=== PATIENT | male | born 1945 | race Two or more races ===

== ENCOUNTER 2017-07-07 13:32 | Emergency (ER) | payer OTHER ==
[~2017-07-07] VITALS: Ht 198.1 cm; Wt 90.7 kg
[~2017-07-07 13:32] MED LIST: ALPHAGAN P5 M1; AZOPT5 ML; BETAXOLOL HCL5 ML; CLEOCIN HCL300 MG PO; COUMADIN5 MG; COUMADIN6 MG; COZAAR50 MG; INTESTINEX1 CA1 PO; NORVASC5 MG; PROZAC10 M1; PROZAC40 MG
== END 2017-07-07 17:01 | disposition home or self-care (01) ==
LOC: ER 13:32
DX: J18.9 Pneumonia, unspecified organism (principal); J45.909 Unspecified asthma, uncomplicated; J11.1 Influenza due to unidentified influenza virus with other respiratory manifestations

== ENCOUNTER 2017-10-14 09:01 | Emergency (ER) | payer OTHER ==
[~2017-10-14] VITALS: Ht 198.1 cm; Wt 90.7 kg
== END 2017-10-14 10:44 | disposition home or self-care (01) ==
LOC: ER 09:01
DX: N20.0 Calculus of kidney (principal)

== ENCOUNTER → 2017-12-06 | Outpatient (CLI) | payer OTHER | END | disposition home or self-care (01) | LOC: TOM 08:48 | DX: M54.5 Low back pain (principal) ==

== ENCOUNTER 2018-03-28 09:38 | Inpatient (IN) | payer OTHER ==
[~2018-03-28] VITALS: Ht 198.1 cm; Wt 90.7 kg
== END 2018-03-29 12:45 | disposition designated cancer center or children's hospital (05) | DRG 309 ==
LOC: ER 09:38 → ICU-2 18:39
PROC: 5A1223Z Performance of Cardiac Pacing, Continuous (ICD-10-PCS; principal; 2018-03-28)
PROC: B246ZZZ Ultrasonography of Right and Left Heart (ICD-10-PCS; 2018-03-28)
PROC: 4A033R1 Measurement of Arterial Saturation, Peripheral, Percutaneous Approach (ICD-10-PCS; 2018-03-28)
PROC: BW28ZZZ Computerized Tomography (CT Scan) of Head (ICD-10-PCS; 2018-03-28)
PROC: BW25ZZZ Computerized Tomography (CT Scan) of Chest, Abdomen and Pelvis (ICD-10-PCS; 2018-03-28)
DX: I48.0 Paroxysmal atrial fibrillation (principal); Q87.418 Marfan syndrome with other cardiovascular manifestations; J98.11 Atelectasis; R00.1 Bradycardia, unspecified; R07.89 Other chest pain; I10 Essential (primary) hypertension; I71.2 Thoracic aortic aneurysm, without rupture; Z95.2 Presence of prosthetic heart valve; K29.00 Acute gastritis without bleeding; R09.02 Hypoxemia